=== PATIENT | female | born 1965 | race Asian ===

== ENCOUNTER 2024-05-12 21:20 | Emergency (ER) | payer SELFPAY ==
[~2024-05-12] VITALS: Ht 170.2 cm; Wt 84.0 kg
[2024-05-12 21:27] VITALS: BP 132/83; RESP 18; TEMP 98; O2SAT 99
[2024-05-12 21:28] VITALS: PULSE 92; O2SAT 98
[2024-05-12 22:46] LABS: BASOPHILS % 0.1 % (0.0-2.0); EOSINOPHILS % 0.3 % (0.0-5.0); HEMATOCRIT. 41.2 % (36.0-48.0); HEMOGLOBIN. 13.8 g/dL (12.0-16.0); LYMPHOCYTES % 24.4 % (20.0-50.0); MEAN CORPUSCULAR HEMOGLOBIN 28.7 pg (28.0-32.0); MEAN CORPUSCULAR HGB CONC 33.4 g/dL (31.0-37.0); MEAN CORPUSCULAR VOLUME 85.8 fL (81.0-99.0); MEAN PLATELET VOLUME 7.7 fl (7.4-10.4); MONOCYTES % 7.7 % (2.0-8.0); NEUTROPHILS % 67.5 % (40.0-76.0); PLATELET 312 x1000/uL (130-400); RED CELL DISTRIBUTION WIDTH 13.7 % (11.6-14.6)
[2024-05-12 23:00] LABS: CARBON DIOXIDE 28 mEq/L (21-32); CHLORIDE 106 mEq/L (98-107); POTASSIUM 4.4 mEq/L (3.5-5.1); SODIUM 139 mEq/L (136-145)
[2024-05-12 23:05] LABS: CREATININE 0.7 mg/dL (0.6-1.0)
[2024-05-12 23:06] LABS: GLUCOSE 105 mg/dL (70-105); UREA NITROGEN BLOOD 12 mg/dL (9-23)
[2024-05-12 23:08] LABS: ALANINE AMINOTRANSFERASE 22 IU/L (10-49); ALBUMIN 4.6 g/dL (3.2-4.8); ASPARTATE AMINOTRANSFERASE 21 IU/L (<34); BILIRUBIN DIRECT 0.4 mg/dL (<=3.0); BILIRUBIN TOTAL 1.7 mg/dL (0.1-1.0); PROTEIN TOTAL 7.7 g/dL (6.0-8.3); TROPONIN I HIGH SENSITIVITY < 4 ng/L (3.0-34)
== END 2024-05-13 00:26 | disposition left against medical advice (07) ==
LOC: ER 21:20
DX: R10.13 Epigastric pain (principal)
CPT/HCPCS: 36415; 76705; 80048; 80076; 84484; 85025; 99284